=== PATIENT | male | born 1935 | race Caucasian/White ===

== ENCOUNTER 2016-03-21 04:03 | Emergency (ER) | payer MEDICARE ==
[2016-03-21 04:04] VITALS: BMI 24.5
[2016-03-21 04:16] VITALS: TEMP 97.6
--- NOTE | 2016-03-21 04:48 | EDPRACDOC ---
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 DENIES PAIN. HAS ABRASION TO APICAL SCALP. RECENT HIP FRACTURE FROM FALL. Pain Severity: Reports: None Injuries/Pain Location: Reports: head Reason for Fall: Reports: unknown Associated Symptoms (Fall): Denies: nausea/vomiting Allergies/Adverse Reactions: Allergies codeine Allergy (Verified 03/08/16 07:34) See Comments HICCUPS Penicillins Allergy (Verified 03/08/16 07:34) Unknown oxycodone Adverse Reaction (Verified 03/08/16 13:23) Confusion Home Medications: Ambulatory Orders Furosemide [Lasix] 40 mg PO DAILY 10/23/12 Allopurinol [Zyloprim] 300 mg PO DAILY 03/08/16 Enalapril Maleate [Vasotec] 2.5 mg PO DAILY 03/08/16 Folic Acid 1 mg PO DAILY 03/08/16 Leflunomide [Arava] 20 mg PO DAILY 03/08/16 Aspirin (OrangeEnteric Coated) [Ecotrin] 325 mg PO BIDWM #60 tablet 03/11/16 Levofloxacin [Levaquin] 750 mg PO DAILY #4 tablet 03/18/16 Metoprolol Tartrate [Lopressor] 12.5 mg PO BID #30 tablet 03/18/16 Oxycodone Immediate Release [Oxycodone Immediate Release (OxyIR)] 5 mg PO Q4H PRN #20 tablet 03/18/16 Prednisone [Sterapred 5 mg/6 day Uni-Pack] 21 tab PO DIR #1 pack 03/18/16 ED Past Medical History - History Reviewed Yes Nurses notes reviewed and agree except as marked - Patient Medical History Neurological History: Denies: Cerebrovascular Accident, Seizures, Dementia, Epilepsy, Guillian-Crisfield Syndrome, Parkinson's, Multiple Sclerosis, Myasthenia Gravis Cardiac History: Reports: Hypertension (in past), Hypercholesterolemia, Valvular Heart Disease, Syncope (not in the last year). Denies: Coronary Artery Disease, Atrial Fibrillation, Congestive Heart Failure, Heart Attack, Pacemaker, Cardiomyopathy Respiratory History: Reports: Pneumonia. Denies: Asthma, COPD, Chronic Bronchitis, Emphysema, Pulmonary Embolism GI/ History: Reports: Renal Disease, Kidney Stones (1978), Gastroesophageal Reflux. Denies: Renal Failure, Urinary Tract Infection, Liver Failure, Ulcer, Pancreatitis Musculoskeletal History: Reports: Arthritis (takes tylenol), Gout, Rheumatoid Arthritis. Denies: Osteoarthritis Psychological History: Denies: Depression, Anxiety, Schizophrenia, Bipolar Disorder, Substance Use Disorder Systemic History: Reports: Anemia. Denies: Cancer, Hyperthyroidism, Hypothyroidism, Lupus Surgical History: Reports: Other (Cataracts, back L4-L5, carpal tunnel, tear duct). Denies: Hernia Surgery, Tonsillectomy/Adnoidectomy - Family Medical History Reports: Hypertension (Mother), Cancer (two sisters breast cancer), Stroke ( Father had mini strokes), Cardiac Disorders (Mother). Denies: Diabetes - Social Medical History Smoking Status: Never smoker Social History: Denies: Substance Use Disorder Lives In: Senior Living Facility EDM Review of Systems - Review of Systems ROS Negative Except as Marked: Yes All systems reviewed and were negative except as marked Integumentary: Wound (APICAL SCALP INJURY AFTER FALL) - Physical Exam Constitutional: Alert Oriented to: Person, Place Last recorded Vital Signs: Last Vital Signs Temp 97.6 F 03/21/16 04:12 Pulse 89 03/21/16 04:12 Resp 20 03/21/16 04:12 BP 125/68 03/21/16 04:12 Pulse Ox 92 03/21/16 04:12 Oxygen Pulse Oxygen Saturation 92 O2 Device Room Air Oxygen Flow Rate Fraction of Inspired Oxygen ( FIO2) - HEENT Head: Abrasion (POSTERIOR APICAL SCALP), Swelling (POSTERIOR APICAL SCALP). negative: Deformity, Laceration, Tender Eye Exam: negative: Conjunctival Injection, Pale Conjunctiva Nose: negative: Congestion, Discharge Neck: negative: Limited ROM - Respiratory/Cardiovascular Respiratory: Normal - CTA. negative: Accessory Muscle Use, Diminished, Tachypnea Cardiovascular: negative: Bradycardia, Tachycardia, Irregular - GI Auscultation: Normal Palpation: Normal Tenderness: Non tender - Integumentary Skin: Warm, Dry, Other (MULTIPLE AREAS OF ECCHYMOSIS OF DIFFERENT AGES.) - Neurologic Memory Impaired: Short-term Motor Function: Normal Mood Description: Appropriate Thought: Coherent ED Injury/Fall Exam - Physical Exam Extremity Exam: pelvis stable - [place] Coma Score Best Eye Response (Tani): (4) open spontaneously Best Verbal Response (Tani): (4) confused conversation Best Motor Response ([place]): (6) obeys commands Tani Total: 14 - Re-evaluation Re-evaluation 1 Re-evaluation Time: 04:49 SON AT BEDSIDE STATES PATIENT IS AT HIS BASELINE MENTATION SINCE SURGERY. Decision Time to Discharge: 05:58 - Departure Yes I personally saw and evaluated the patient. Disposition: Home Condition: Stable Final Diagnosis: Scalp contusion Qualifiers: Encounter type: initial encounter Qualified Code(s): S00.03XA - Contusion of scalp, initial encounter Scalp abrasion Qualifiers: Encounter type: initial encounter Qualified Code(s): S00.01XA - Abrasion of scalp, initial encounter Instructions: RICE: Routine Care for Injuries, Abrasion (ED) Education/Counseling Given To: Patient, Family Member Education/Counseling Given Regarding: Diagnosis, Treatment, Prognosis, Follow Up Referrals: None,No Provider [Primary Care Provider] - As Needed
--- NOTE | 2016-03-21 05:44 | DIRPT ---
CLINICAL DATA: Status post fall, with some concern for pelvic injury. Recent right hip surgery. Initial encounter. EXAM: PELVIS - 1-2 VIEW COMPARISON: Pelvis radiograph performed 03/08/2016 FINDINGS: There is no evidence of new fracture or dislocation. The patient's right femoral hardware appears grossly intact, without evidence of loosening. Underlying fracture lines are still visualized. Overlying skin stefano are seen. Both femoral heads are seated normally within their respective acetabula. Mild degenerative change is noted at the lower lumbar spine. The visualized bowel gas pattern is grossly unremarkable in appearance. IMPRESSION: 1. No evidence of new fracture or dislocation. 2. Right femoral hardware appears grossly intact, without evidence of loosening. Electronically Signed By: Michael Bridges M.D. On: 03/21/2016 05:41
--- NOTE | 2016-03-21 05:53 | DIRPT ---
CLINICAL DATA: Initial evaluation for acute trauma. Fall with posterior head injury. EXAM: CT HEAD WITHOUT CONTRAST TECHNIQUE: Contiguous axial images were obtained from the base of the skull through the vertex without intravenous contrast. COMPARISON: None. FINDINGS: Small contusion present at the left parietal scalp. Scalp soft tissues otherwise within normal limits. No acute abnormality about the orbits. Senescent calcifications noted. Minimal polypoid opacity within the right max O sinus. Paranasal sinuses are otherwise clear. No mastoid effusion. Calvarium intact. Generalized age-related cerebral atrophy with mild chronic small vessel ischemic disease present. No acute intracranial hemorrhage. No extra-axial fluid collection. No evidence for acute large vessel territory infarct. No hydrocephalus, mass effect, or midline shift. No mass lesion. IMPRESSION: 1. No acute intracranial process. 2. Small left parietal scalp contusion. 3. Mild age-related cerebral atrophy with chronic small vessel ischemic disease. Electronically Signed By: Aquiles Desai M.D. On: 03/21/2016 05:50
[2016-03-21 06:40] VITALS: BP 111/61; PULSE 99
== END 2016-03-21 06:37 ==
LOC: ED 04:03
DX: S00.01XA Abrasion of scalp, initial encounter (principal); W19.XXXA Unspecified fall, initial encounter; Y93.9 Activity, unspecified; R51 Headache
CPT/HCPCS: 70450; 72170; 99283

== ENCOUNTER 2016-04-01 11:10 | Inpatient (IN) | payer MEDICARE, OTHER ==
[2016-04-01] MEDS ORDERED: NS 1,000 ML IV ONE ×2 (11:45→13:56)
[2016-04-01] MEDS ORDERED: ACETAMINOPHEN 650 MG SUPP PR ONE (11:56)
[2016-04-01 12:12] LABS: ABG Draw Site Right Radial; ABG Draw Tech RD; ALLEN'S TEST PASS; BEb 2.2 (+/- 2); TCO2 26.3 MMOL/L (23-27)
--- NOTE | 2016-04-01 12:16 | DIRPT ---
CLINICAL DATA: Syncope. EXAM: PORTABLE CHEST 1 VIEW COMPARISON: March 18, 2016. FINDINGS: The heart size and mediastinal contours are within normal limits. No pneumothorax or pleural effusion is noted. Minimal density is noted in the right lateral lung base most consistent with subsegmental atelectasis. The visualized skeletal structures are unremarkable. IMPRESSION: Minimal right basilar subsegmental atelectasis. No other abnormality seen in the chest. Electronically Signed By: London Epps Jr, M.D. On: 04/01/2016 12:14
[2016-04-01 12:18] LABS: MPV 8.4 fL (7.4-10.4)
--- NOTE | 2016-04-01 12:23 | EDPRACDOC ---
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, Fruit Farmer Mode of Arrival: Ambulance Home Medications: Home Medications Furosemide [Lasix] 40 mg PO DAILY 10/23/12 Allopurinol [Zyloprim] 300 mg PO DAILY 03/08/16 Enalapril Maleate [Vasotec] 2.5 mg PO DAILY 03/08/16 Folic Acid 1 mg PO DAILY 03/08/16 Leflunomide [Arava] 20 mg PO DAILY 03/08/16 Aspirin (OrangeEnteric Coated) [Ecotrin] 325 mg PO BIDWM #60 tablet 03/11/16 Levofloxacin [Levaquin] 750 mg PO DAILY #4 tablet 03/18/16 Metoprolol Tartrate [Lopressor] 12.5 mg PO BID #30 tablet 03/18/16 Oxycodone Immediate Release [Oxycodone Immediate Release (OxyIR)] 5 mg PO Q4H PRN #20 tablet 03/18/16 Prednisone [Sterapred 5 mg/6 day Uni-Pack] 21 tab PO DIR #1 pack 03/18/16 Allergies/Adverse Reactions: Allergies Allergy/AdvReac Type Severity Reaction Status Date / Time codeine Allergy See Verified 04/01/16 12:36 Comments Penicillins Allergy Unknown Verified 04/01/16 12:36 oxycodone AdvReac Confusion Verified 04/01/16 12:36 - History of Present Illness Onset: today HPI: HERE WITH FEVER. PT NOT ABLE TO CONTRIBUTE TO HX. OLD RECORDS REVIEWED. Relevant History: Reports: Chronic Illness Improves With: Reports: Nothing ED Past Medical History - History Reviewed Yes Nurses notes reviewed and agree except as marked - Patient Medical History Neurological History: Denies: Cerebrovascular Accident, Seizures, Dementia, Epilepsy, Guillian-Angier Syndrome, Parkinson's, Multiple Sclerosis, Myasthenia Gravis Cardiac History: Reports: Hypertension (in past), Hypercholesterolemia, Valvular Heart Disease, Syncope (not in the last year). Denies: Coronary Artery Disease, Atrial Fibrillation, Congestive Heart Failure, Heart Attack, Pacemaker, Cardiomyopathy Respiratory History: Reports: Pneumonia. Denies: Asthma, COPD, Chronic Bronchitis, Emphysema, Pulmonary Embolism GI/ History: Reports: Renal Disease, Kidney Stones (1978), Gastroesophageal Reflux. Denies: Renal Failure, Urinary Tract Infection, Liver Failure, Ulcer, Pancreatitis Musculoskeletal History: Reports: Arthritis (takes tylenol), Gout, Rheumatoid Arthritis. Denies: Osteoarthritis Psychological History: Denies: Depression, Anxiety, Schizophrenia, Bipolar Disorder, Substance Use Disorder Systemic History: Reports: Anemia. Denies: Cancer, Hyperthyroidism, Hypothyroidism, Lupus Surgical History: Reports: Other (Cataracts, back L4-L5, carpal tunnel, tear duct). Denies: Hernia Surgery, Tonsillectomy/Adnoidectomy - Family Medical History Reports: Hypertension (Mother), Cancer (two sisters breast cancer), Stroke ( Father had mini strokes), Cardiac Disorders (Mother). Denies: Diabetes - Social Medical History Smoking Status: Never smoker Social History: Denies: Substance Use Disorder EDM Review of Systems - Review of Systems ROS Unobtainable: Yes ROS cannot be obtained due to patient's medical condition - Physical Exam Constitutional: Alert (Awake), No apparent distress Oriented to: Unable to Test Last recorded Vital Signs: Last Vital Signs Temp 101.3 F H 04/01/16 11:29 Pulse 91 04/01/16 12:16 Resp 18 04/01/16 12:16 BP 87/49 L 04/01/16 12:16 Pulse Ox 98 04/01/16 12:16 Oxygen Pulse Oxygen Saturation 98 O2 Device Nasal Cannula Oxygen Flow Rate Fraction of Inspired Oxygen ( 2 FIO2) - HEENT Head: Normal ( normocephalic) Eye Exam: Normal (PERRL, EOMI, Sclera white) Oropharynx: Normal (Pharynx:Moist without exudate,Gums-no swelling) ENT EAC: Normal TMJ: Normal Nose: No Symptoms Reported (septum midline) Neck: Normal (FROM, trachea at midline) - Respiratory/Cardiovascular Respiratory: Normal - CTA (BBS clear to auscultation without adventitious sounds ) Cardiovascular: Normal (RRR without murmur, gallop or rub) - GI Auscultation: Normal (NABS) Palpation: Normal (Soft,No rebound or guarding, non distended) Tenderness: Non tender Ryan's Sign: Negative - Musculoskeletal Back: Normal (Non-Tender) Extremities: Normal (Normal tone, Pulses 2+ No cyanosis or edema, FROM) - Integumentary Skin: Normal, Warm, Dry Lymphatics: Normal (no adenopathy) - Neurologic Memory Impaired: Unable to Test Motor Function: Normal (Normal tone, Pulses 2+ No cyanosis or edema, FROM) Cranial Nerve: Normal (CN II-X11 intact sensation, strength 5/5) Cerebellar: Normal - Results 04/01/16 11:58 04/01/16 11:58 WBC 29.9 xk/uL (3.8-10.8) H 04/01/16 11:58 RBC 3.63 xM/uL (4.70-6.10) L 04/01/16 11:58 Hgb 11.4 g/dL (14.0-18.0) L 04/01/16 11:58 Hct 36.0 % (42-52) L 04/01/16 11:58 MCV 99 fL (80-94) H 04/01/16 11:58 MCH 31.4 pg (27-32) 04/01/16 11:58 MCHC 31.6 g/dl (33-36) L 04/01/16 11:58 RDW 18.3 % (11.5-14.5) H 04/01/16 11:58 Plt Count 187 xk/uL (130-400) 04/01/16 11:58 MPV 8.4 fL (7.4-10.4) 04/01/16 11:58 Puncture Site Right radial 04/01/16 12:08 pH 7.480 pH UNITS (7.35-7.45) H 04/01/16 12:08 pCO2 34.0 mmHg (35-45) L 04/01/16 12:08 pO2 78.0 mmHg (80-100) L 04/01/16 12:08 HCO3 25.3 MMOL/L (22-26) 04/01/16 12:08 Total CO2 26.3 MMOL/L (23-27) 04/01/16 12:08 Base Excess 2.2 (+/- 2) H 04/01/16 12:08 FiO2 % 2l nc 04/01/16 12:[address] 04/01/16 12:08 Lab Results 04/01/16 04/01/16 12:08 11:58 WBC 29.9 H RBC 3.63 L Hgb 11.4 L Hct 36.0 L MCV 99 H MCH 31.4 MCHC 31.6 L RDW 18.3 H Plt Count 187 MPV 8.4 Puncture Site Right radial pH 7.480 H pCO2 34.0 L pO2 78.0 L HCO3 25.3 Total CO2 26.3 Base Excess 2.2 H FiO2 % 2l nc Specimen Drawn By Rd - EKG EKG #1 [place]: Normal Rhythm: ST Block: None Hypertrophy: None ST: Normal ED Critical Care Note - Critical Care Note Total Time (mins): 35 - Departure Yes I personally saw and evaluated the patient. Disposition: Admit IP To This Hospital Condition: Good Final Diagnosis: FEBRILE ILLNESS, SEVERE SEPSIS Referrals: Charles Sprague MD [Primary Care Provider] - One Week Decision to Admit Time: 12:41 (SERENA) Decision to admit date: 04/01/16 Decision to admit: from ED
[2016-04-01 12:27] LABS: PARTIAL THROMB. TIME 25.1 SEC (22-35); PT-INR 1.1
[2016-04-01 12:29] LABS: BLOOD UREA NITROGEN 31 MG/DL (9-20); CALC CORRECTED 10.5 MG/DL (8.4-10.2); CALCIUM 9.4 MG/DL (8.4-10.2); CALCULATED OSMOLALITY 282 MOs/Kg (270-290); CHLORIDE 101 mEq/L (98-107); GLUCOSE 133 MG/DL (70-99); SODIUM LEVEL 142 mEq/L (137-146); TOTAL PROTEIN 5.6 G/DL (6.3-8.2)
[2016-04-01 12:31] LABS: LEUKOCYTES/URINE NEG (NEGATIVE); NITRITE/URINE NEG (NEGATIVE); RBC/URINE 0-2 (0-2); URINE OCCULT BLOOD NEG (NEG/TRACE); WBC/URINE 0-2 (0-2)
[2016-04-01] MEDS ORDERED: CEFEPIME HYDROCHLORIDE 2 GM in D5W 100 ML IV ONE (12:40)
[2016-04-01] MEDS ORDERED: PIPERACILLIN AND TAZOBACTAM 3.375 GM in D5W 100 ML IV ONE (12:40)
[2016-04-01 13:24] LABS: SEG NEUTROPHIL 79 % (45-76)
[2016-04-01] MEDS ORDERED: TEMAZEPAM 15 MG CAP PO PRN (13:56)
[2016-04-01] MEDS ORDERED: ACETAMINOPHEN 650 MG SUPP PR PRN (13:56)
[2016-04-01] MEDS ORDERED: ONDANSETRON HCL 4 MG/2 ML VIAL IV PRN (13:56)
[2016-04-01] MEDS ORDERED: BENZONATATE 100 MG PERLES PO PRN (13:56)
[2016-04-01] MEDS ORDERED: DOCUSATE-SENNA CONCENTRATE TAB PO PRN (13:56)
[2016-04-01] MEDS ORDERED: METOCLOPRAMIDE 10 MG/2 ML VIAL IV PRN (13:56)
[2016-04-01] MEDS ORDERED: ACETAMINOPHEN 325 MG/TAB TABLET PO PRN (13:56)
[2016-04-01] MEDS ORDERED: SIMETHICONE 80 MG TAB PO PRN (13:56)
[2016-04-01] MEDS ORDERED: GLUCAGON 1 MG VIAL SQ PRN (13:56)
[2016-04-01] MEDS ORDERED: DEXTROSE 25 GM/50 ML PFS IV PRN (13:56)
[2016-04-01] MEDS ORDERED: GLUCOSE (ORAL GEL) 15 GM TUBE PO PRN (13:56)
[2016-04-01] MEDS ORDERED: NS 1,000 ML IV SCH (14:00)
[2016-04-01] MEDS ORDERED: Pharmacy Order Set Alert SCH (14:00)
[2016-04-01] MEDS ORDERED: Levofloxacin 750 mg/150 ml D5W 750 MG/150 ML RTU IV SCH (16:00)
[2016-04-01] MEDS ORDERED: NS 500 ML IV ONE (16:02)
[2016-04-01] MEDS: Norepinephrine in D5W infusion 8,000 MCG/250 ML BAG IV SCH (16:28)
--- NOTE | 2016-04-01 16:36 | HISTPHYS ---
- Chief Complaint syncope, altered mental status - History of Present Illness Samantha Jewell is an 80 year old gentleman who underwent recent hip surgery and was getting rehabilitation at [facility]. He had a syncopal episode today, and subsequently was noted to be tachypneic and tachycardic. He is slightly confused, but his caretakers stated that he has some baseline dementia. In the ED he was noted to have chest congestion, an abnormal CXR with probable early pneumonia, fever, tachypnea, tachycardia, and leukocytosis with a bandemia, all consistent with sepsis. His lactic acid level is 4.9. He is critically ill and will be admitted to the ICU for further care and evaluation. We will initiate rapid hydration and after obtaining appropriate cultures, begin IV antibiotics. - Medical History Cardiac History: Reports: Hypertension (On BP med for issue w/ kidneys.), Syncope (not in the last year) Respiratory History: Reports: Pneumonia (02/2016), Pulmonary Embolism (Post op 02/2016) GI/ History: Reports: Renal Disease, Kidney Stones (1978) Musculoskeletal History: Reports: Arthritis (takes tylenol), Gout Systemic History: Reports: Anemia - Surgical History Reports: Other (Cataracts, back L4-L5, carpal tunnel, tear duct). Denies: Hernia Surgery, Tonsillectomy/Adnoidectomy - Medictions/Allergies Allergies codeine Allergy (Unknown, Verified 04/01/16 15:31) See Comments Hallucinations Penicillins Allergy (Unknown, Verified 04/01/16 15:31) See Comments Family unaware of allergy to PCN. oxycodone Adverse Reaction (Unknown, Verified 04/01/16 15:31) Confusion Hallucinations Home Medications Furosemide [Lasix] 40 mg PO BID 10/23/12 Allopurinol [Zyloprim] 300 mg PO 1600 03/08/16 Enalapril Maleate [Vasotec] 2.5 mg PO DAILY 03/08/16 Folic Acid 1 mg PO 0900 03/08/16 Leflunomide [Arava] 20 mg PO 1600 03/08/16 Aspirin (OrangeEnteric Coated) [Ecotrin] 325 mg PO BIDWM #60 tablet 03/11/16 Metoprolol Tartrate [Lopressor] 12.5 mg PO BID #30 tablet 03/18/16 Oxycodone Immediate Release [Oxycodone Immediate Release (OxyIR)] 5 mg PO Q4H PRN #20 tablet 03/18/16 Acetaminophen [Tylenol] 650 mg PO Q6H PRN 04/01/16 Calcium Carbonate/Vitamin D3 [Calcium 500 + Vit D 200 Tablet] 1 each PO BID Prednisone [Deltasone, Orasone] 5 mg PO 0900 04/01/16 Sennosides [Senokot] 2 tab PO HS 04/01/16 - Family History Reports: Hypertension (Mother), Cancer (two sisters breast cancer), Stroke ( Father had mini strokes), Cardiac Disorders (Mother) - Social History Smoking Status: Former smoker - Review of Systems Constitutional: Chills, Fever, Fatigue, Weakness Eyes: No Symptoms Reported Ears: No Symptoms Reported Nose: Congestion Mouth: No Symptoms Reported, Poor Dentition Throat/Neck: Hoarseness, Snoring Respiratory: Cough, Shortness of Breath, Wheezing Cardiovascular: Chest Pain, Syncope Gastrointestinal: Nausea, Vomiting, Appetite Changes Genitourinary: No Symptoms Reported Neurological: Dizziness, Weakness, Memory Changes Musculoskeletal:: Osteoarthritis, Weakness Integumentary: No Symptoms Reported Allergic/Immunologic: No Symptoms Reported Hematologic: No Symptoms Reported Endocrine: No Symptoms Reported Psychiatric: No Symptoms Reported - Physical Exam Vital Signs: Initial Vitals Temperature 101.3 F H 04/01/16 11:29 Pulse Rate 114 04/01/16 11:29 Blood Pressure 91/51 L 04/01/16 11:29 Constitutional: Distress, Decreased Consciousness Oriented to: Unable to Test - HEENT Head: Normal Eye: Normal (PERRL: EOMI), Pale Conjunctiva Oropharynx: Membranes Dry. negative: Exudate, Red, Tonsillar Hypertrophy Tympanic Membrane: Dull ENT EAC: Normal Nose: No Symptoms Reported. negative: Bleeding, Congestion, Discharge Respiratory: Accessory Muscle Use, Rales, Retractions, Rhonchi, Tachypnea, Wheezes Cardiovascular: Tachycardia, Systolic murmur, Gallop/S3 - GI Auscultation: Normal Palpation: Normal (soft, nondistended). negative: Fluid Wave, Mass Tenderness: Non tender Ryan's Sign: Negative Rectal Exam: Deferred - Musculoskeletal Back: Normal, No Palpable Step-off Extremities: Pedal Pulse (normal), Radial Pulse (normal). negative: Clubbing, Cyanosis, Edema Spine: non-tender, normal alignment, normal inspection - Integumentary Skin: Hot, Dry. negative: Rash Lymphatics: Normal - Neurologic Memory Impaired: Unable to Test Motor Function: Unable to Test Cranial Nerve: Unable to Test Cerebellar: Unable to Test Mood Description: Other (minimally responsive) Thought: negative: Coherent Perception: Other (unable to test) - Focused CV Perfusion Exam Date exam occurred: 04/01/16 Time of Exam: 15:00 Vital Signs: Last Vital Signs Temp 100.4 F 04/01/16 15:30 Pulse 107 04/01/16 15:30 Resp 18 04/01/16 15:00 BP 92/50 L 04/01/16 15:30 Pulse Ox 98 04/01/16 13:05 Respiratory: Respiratory distress, Accessory muscle use, Rales, Rhonchi Cardiovascular/Chest: Tachycardia, Gallop/S3 Peripheral pulses: Absent: Posterior tibialis (R), Posterior tibialis (L), Diminished: Radial (R), Radial (L), Dorsalis pedis (R), Dorsalis pedis (L) Skin Color: Dusky, Ashen Skin Turgor: >3 Seconds, Tight - Lab Results Laboratory Tests 04/01/16 04/01/16 04/01/16 11:30 11:58 11:58 WBC Hgb Hct Plt Count Seg Neuts % (Manual) Band Neutrophils % Lymphocytes % (Manual) Monocytes % (Manual) Myelocytes % Absolute Neutrophils PT INR APTT pH pCO2 pO2 HCO3 Total CO2 Base Excess FiO2 % Sodium 142 Potassium 3.3 L Chloride 101 Carbon Dioxide 27 Anion Gap 17 H BUN 31 H Creatinine 1.80 H Estimated GFR (MDRD) 36 L Glucose 133 H POC Capillary Glucose Calculated Osmolality 282 Lactic Acid 4.9 H* Calcium 9.4 Corrected Calcium 10.5 H Total Bilirubin 1.2 AST 31 ALT 31 Alkaline Phosphatase 174 H Troponin I 0.20 Total Protein 5.6 L Albumin 2.9 L Urine Color Yellow Urine Clarity Clear Urine pH 6.0 Ur Specific [place] 1.010 Urine Protein Neg Urine Glucose (UA) Neg Urine Ketones Neg Urine Nitrite Neg Urine RBC 0-2 Urine WBC 0-2 Hyaline Casts 10-20 H Urine Mucus Occ 04/01/16 04/01/16 04/01/16 11:58 11:58 12:08 WBC 29.9 H Hgb 11.4 L Hct 36.0 L Plt Count 187 Seg Neuts % (Manual) 79 H Band Neutrophils % 12 H Lymphocytes % (Manual) 3 L Monocytes % (Manual) 3 Myelocytes % 3 H Absolute Neutrophils 27.21 H PT 11.4 H INR 1.1 APTT 25.1 pH 7.480 H pCO2 34.0 L pO2 78.0 L HCO3 25.3 Total CO2 26.3 Base Excess 2.2 H FiO2 % 2l nc Sodium Potassium Chloride Carbon Dioxide Anion Gap BUN Creatinine Estimated GFR (MDRD) Glucose POC Capillary Glucose Calculated Osmolality Lactic Acid Calcium Corrected Calcium Total Bilirubin AST ALT Alkaline Phosphatase Troponin I Total Protein Albumin Urine Color Urine Clarity Urine pH Ur Specific [place] Urine Protein Urine Glucose (UA) Urine Ketones Urine Nitrite Urine RBC Urine WBC Hyaline Casts Urine Mucus 04/01/16 04/01/16 16:20 16:43 WBC Hgb Hct Plt Count Seg Neuts % (Manual) Band Neutrophils % Lymphocytes % (Manual) Monocytes % (Manual) Myelocytes % Absolute Neutrophils PT INR APTT pH pCO2 pO2 HCO3 Total CO2 Base Excess FiO2 % Sodium Potassium Chloride Carbon Dioxide Anion Gap BUN Creatinine Estimated GFR (MDRD) Glucose POC Capillary Glucose 92 Calculated Osmolality Lactic Acid 3.4 H Calcium Corrected Calcium Total Bilirubin AST ALT Alkaline Phosphatase Troponin I Total Protein Albumin Urine Color Urine Clarity Urine pH Ur Specific [place] Urine Protein Urine Glucose (UA) Urine Ketones Urine Nitrite Urine RBC Urine WBC Hyaline Casts Urine Mucus - Diagnostic Findings CXR: IMPRESSION: Minimal right basilar subsegmental atelectasis. No other abnormality seen in the chest. Electronically Signed By: London Epps Jr, M.D. On: 04/01/2016 12:14 By my personal review, this is also suggestive of possible RLL pneumonia. Ruben Umaña MD - Assessment (1) Sepsis A41.9 - SEPSIS, UNSPECIFIED ORGANISM Acute Qualifiers: Sepsis type: sepsis due to unspecified organism Qualified Code(s): A41.9 - Sepsis, unspecified organism Patient presented with fever, tachypnea, tachycardia, and pneumonia and well as leukocytosis and lactic acidosis which are consistent with sepsis. His lactate level is above 4 consistent with severe sepsis. Admit to ICU and initiate severe sepsis protocol. Obtain appropriate cultures and begin aggressive fluid resuscitation and broad-spectrum antibiotics, await cultures results. (2) Acute respiratory failure with hypoxia J96.01 - ACUTE RESPIRATORY FAILURE WITH HYPOXIA Acute Present on Admission: Yes Patient was hypoxic, but stable once placed on 2L of O2 per NC. Will resume pulmonary toilet and DuoNeb treatments. (3) Pneumonia J18.9 - PNEUMONIA, UNSPECIFIED ORGANISM Acute Present on Admission: Yes Qualifiers: Pneumonia type: due to unspecified organism Laterality: bilateral Lung location: unspecified part of lung Qualified Code(s): J18.9 - Pneumonia, unspecified organism Obtain blood and urine culture, sputum culture if possible, begin antibiotics with IV Rocephin, Levaquin and vanc. Continue broad-spectrum antibiotics and aggressive pulmonary toilet. (4) Acute kidney injury N17.9 - ACUTE KIDNEY FAILURE, UNSPECIFIED Acute Present on Admission: Yes Hydrate aggressively and follow renal function (5) Anemia D64.9 - ANEMIA, UNSPECIFIED Chronic Present on Admission: Yes Qualifiers: Anemia type: other cause Other causes of anemia: chronic disease, other Qualified Code(s): D63.8 - Anemia in other chronic diseases classified elsewhere Monitor counts -overall stable. Probably related to Rheumatoid arthritis. (6) Rheumatoid arthritis M06.9 - RHEUMATOID ARTHRITIS, UNSPECIFIED Chronic Present on Admission: Yes Qualifiers: Rheumatoid arthritis location: multiple sites Rheumatoid factor presence: with rheumatoid factor Qualified Code(s): M05.79 - Rheumatoid arthritis with rheumatoid factor of multiple sites without organ or systems involvement Given hypotension patient will receive stress dose steroids. (7) Hypokalemia E87.6 - HYPOKALEMIA Acute Present on Admission: Yes Replace and monitor (8) Fracture, intertrochanteric, right femur S72.141A - DISPLACED INTERTROCHANTERIC FRACTURE OF RIGHT FEMUR, INIT Acute Qualifiers: Encounter type: subsequent encounter Fracture type: closed Status post surgical repair. Continue postop care. Hold PT/OT for now. will resume in 2-3 days, consult ortho also for follow-up. (9) Pulmonary embolus I26.99 - OTHER PULMONARY EMBOLISM WITHOUT ACUTE COR PULMONALE Acute Present on Admission: Yes Qualifiers: Pulmonary embolism type: other Chronicity: unspecified Acute cor pulmonale presence: without acute cor pulmonale Qualified Code(s): I26.99 - Other pulmonary embolism without acute cor pulmonale Diagnosed in late February 2016 by [facility] on V/Q scan. Given thrombocytopenia and repeated falls at home he is a very poor anticoagulation candidate. Discussed with Pulmonary and will hold off on full anticoagulation for now. Discussed with who understands risk.
[2016-04-01] MEDS ORDERED: Vaccine Screening Complete SCH (17:00)
[2016-04-01] MEDS: REGULAR INSULIN 100 UNITS/ML - 3 ML VIAL SQ SCH ×2 (17:15→22:21)
[2016-04-01] MEDS: NS 1,000 ML IV SCH (17:53)
[2016-04-01] MEDS: ENOXAPARIN 40 MG/0.4 ML PFS SQ SCH (18:04)
[2016-04-01] MEDS: CEFTRIAXONE 1 GM in D5W 100 ML IV SCH (18:37)
[2016-04-01] MEDS: CHLORHEXIDINE (HIBICLENS) 4 OZ BOTTLE TOP SCH (22:10)
[2016-04-02] MEDS: NS 1,000 ML IV SCH ×4 (02:15→20:41)
[2016-04-02] MEDS: Norepinephrine in D5W infusion 8,000 MCG/250 ML BAG IV SCH ×2 (06:47→17:07)
[2016-04-02] MEDS: REGULAR INSULIN 100 UNITS/ML - 3 ML VIAL SQ SCH ×4 (06:49→21:47)
[2016-04-02 06:53] LABS: MPV 9.5 fL (7.4-10.4)
[2016-04-02 06:55] LABS: PT-INR 1.3
[2016-04-02 07:03] LABS: BLOOD UREA NITROGEN 31 MG/DL (9-20); CALCIUM 7.9 MG/DL (8.4-10.2); CALCULATED OSMOLALITY 276 MOs/Kg (270-290); CHLORIDE 107 mEq/L (98-107); GLUCOSE 112 MG/DL (70-99); SODIUM LEVEL 139 mEq/L (137-146)
[2016-04-02 07:33] LABS: SEG NEUTROPHIL 63 % (45-76)
[2016-04-02] MEDS: KCl 10 mEq/100 ml Premix (Run) 10 MEQ/100 ML RTU IV SCH ×6 (11:00→14:17)
[2016-04-02] MEDS: HYDROCORTISONE 100 MG/2 ML VIAL IV SCH ×2 (11:01→17:58)
--- NOTE | 2016-04-02 11:32 | DIRPT ---
CLINICAL DATA: Syncope. EXAM: PORTABLE CHEST 1 VIEW COMPARISON: 04/01/2016 FINDINGS: Mild decrease in lung volumes since previous study. Mild atelectasis or infiltrate again seen in the lateral right lung base, without significant change. No evidence of pneumothorax or pleural effusion. Heart size is within normal limits. IMPRESSION: Mild right basilar infiltrate or atelectasis, without significant change. Electronically Signed By: Dusty Murcia M.D. On: 04/02/2016 11:30
[2016-04-02] MEDS ORDERED: Metronidazole 500 mg/100 ml 500 MG/100 ML RTU IV ONE (14:00)
--- NOTE | 2016-04-02 14:16 | GENMEDPROG ---
Chief Complaint: sepsis, pneumonia, Clostridium difficile colitis, dehydration, acute kidney injury, anemia, hypokalemia Notes Reviewed: Yes Events from last night noted and discussed with Clinical Staff Currently: Reports: NAIK, SOB, Diarrhea, Abdominal Pain - Physical Examination Vital Signs and I&O: Last Vital Signs Temp 99.9 F 04/02/16 13:00 Pulse 105 04/02/16 13:00 Resp 18 04/02/16 13:00 BP 87/49 L 04/02/16 13:00 Pulse Ox 95 04/02/16 13:00 Oxygen Pulse Oxygen Saturation 95 O2 Device Nasal Cannula Oxygen Flow Rate 1 Fraction of Inspired Oxygen ( FIO2) Intake & Output 03/30/16 03/31/16 04/01/16 04/02/16 23:59 23:59 23:59 23:59 Intake Total 2644 2058 Output Total 300 225 Balance 2344 1833 Patient's weight 72.121 kg General: Moderate distress, Weakness, Fatigue HEENT: PERRLA, EOMI, Anicteric Sclera, Mucous membr. moist/pink Neck: Full range of motion, Normal Trachea alignment, Normal inspection, No Masses palpable, No Thyromegaly palpable Lymphatics: Normal Respiratory: Accessory Muscle Use, Rales, Retractions, Rhonchi, Tachypnea, Wheezes Cardiovascular: Regular rate and rhythm, Normal S1, Normal S2, Irregular. negative: LE Edema GI: Normal bowel sounds, Soft, No masses, Tenderness (mild diffuse), Guarding. negative: Rebound Extremities/Musculoskeletal: Normal pulses Lab/DI/Studies Reviewed: Laboratory Tests 04/02/16 04/02/16 04/02/16 05:52 05:52 05:52 WBC 33.2 H* Hgb 11.2 L Hct 35.4 L Plt Count 191 Seg Neuts % (Manual) 63 Band Neutrophils % 31 H Lymphocytes % (Manual) 2 L PT INR Sodium 139 Potassium 3.3 L Chloride 107 Carbon Dioxide 22 Anion Gap 13 BUN 31 H Creatinine 1.50 H Estimated GFR (MDRD) 45 L Glucose 112 H POC Capillary Glucose Calculated Osmolality 276 Lactic Acid 2.4 H Calcium 7.9 L 04/02/16 04/02/16 05:52 11:50 WBC Hgb Hct Plt Count Seg Neuts % (Manual) Band Neutrophils % Lymphocytes % (Manual) PT 13.0 H INR 1.3 Sodium Potassium Chloride Carbon Dioxide Anion Gap BUN Creatinine Estimated GFR (MDRD) Glucose POC Capillary Glucose 81 Calculated Osmolality Lactic Acid Calcium Microbiology 04/01/16 23:41 Stool Stool Consistency (JESSE) - Final 04/01/16 23:41 Stool Clostridium difficile 027 (PCR) - Final * POSITIVE * This test may remain positive for several weeks even after the resolution of symptoms and completion of treatment. Therefore, repeat testing should NOT be requested within 7 days of the initial positive specimen, and then should be performed only in the setting of new onset diarrheal illness. Repeat assays should NOT be done to test for resolution of C. difficile infection. ([employer] C. difficile/Epi by PCR: Performance characteristics have not been established for patients <2 years of age - per cattle rancher limitations.) PRESUMPTIVE POSITIVE (For in vitro diagnostic use only. [id number] results are NOT intended to guide treatment of C. difficile infections. (Infection Control Hosp Epidemiol 2010;31:431-455) ) - Assessment (1) Sepsis Acute A41.9 - SEPSIS, UNSPECIFIED ORGANISM Qualifiers: Sepsis type: sepsis due to unspecified organism Qualified Code(s): A41.9 - Sepsis, unspecified organism Comment/Plan: Patient presented with fever, tachypnea, tachycardia, and pneumonia and well as leukocytosis and lactic acidosis which are consistent with sepsis. His lactate level is above 4 consistent with severe sepsis. Admit to ICU and initiate severe sepsis protocol. Obtain appropriate cultures and begin aggressive fluid resuscitation and broad-spectrum antibiotics, await cultures results. (2) Acute respiratory failure with hypoxia Acute J96.01 - ACUTE RESPIRATORY FAILURE WITH HYPOXIA Comment/Plan: Patient was hypoxic, but stable once placed on 2L of O2 per NC. Will resume pulmonary toilet and DuoNeb treatments. (3) Pneumonia Acute J18.9 - PNEUMONIA, UNSPECIFIED ORGANISM Qualifiers: Pneumonia type: due to unspecified organism Laterality: bilateral Lung location: unspecified part of lung Qualified Code(s): J18.9 - Pneumonia, unspecified organism Comment/Plan: Obtain blood and urine culture, sputum culture if possible, begin antibiotics with IV Rocephin, Levaquin and vanc. Continue broad-spectrum antibiotics and aggressive pulmonary toilet. (4) Clostridium difficile colitis Acute A04.7 - ENTEROCOLITIS DUE TO CLOSTRIDIUM DIFFICILE Comment/Plan: Stool test + for C. diff. Patient remains nauseated and unable to swallow due to altered sensorium. Will start medication IV. (5) Anemia Chronic D64.9 - ANEMIA, UNSPECIFIED Qualifiers: Anemia type: other cause Other causes of anemia: chronic disease, other Qualified Code(s): D63.8 - Anemia in other chronic diseases classified elsewhere Comment/Plan: Monitor counts -overall stable. Probably related to Rheumatoid arthritis. (6) Acute kidney injury Acute N17.9 - ACUTE KIDNEY FAILURE, UNSPECIFIED Comment/Plan: Hydrate aggressively and follow renal function (7) Rheumatoid arthritis Chronic M06.9 - RHEUMATOID ARTHRITIS, UNSPECIFIED Qualifiers: Rheumatoid arthritis location: multiple sites Rheumatoid factor presence: with rheumatoid factor Qualified Code(s): M05.79 - Rheumatoid arthritis with rheumatoid factor of multiple sites without organ or systems involvement Comment/Plan: Given hypotension patient will receive stress dose steroids. (8) Hypokalemia Acute E87.6 - HYPOKALEMIA Comment/Plan: Replace and monitor (9) Fracture, intertrochanteric, right femur Acute S72.141A - DISPLACED INTERTROCHANTERIC FRACTURE OF RIGHT FEMUR, INIT Qualifiers: Encounter type: subsequent encounter Fracture type: closed Comment/Plan: Status post surgical repair. Continue postop care. Remove stefano from incision. Hold PT/OT for now. Will resume in 2-3 days, consult ortho also for follow-up. (10) Pulmonary embolus Acute I26.99 - OTHER PULMONARY EMBOLISM WITHOUT ACUTE COR PULMONALE Qualifiers: Pulmonary embolism type: other Chronicity: unspecified Acute cor pulmonale presence: without acute cor pulmonale Qualified Code(s): I26.99 - Other pulmonary embolism without acute cor pulmonale Comment/Plan: Diagnosed in late February 2016 by [facility] on V/ Q scan. Given thrombocytopenia and repeated falls at home he is a very poor anticoagulation candidate. Discussed with who understands risk. Case Care Discussed with: Patient, Family, Nursing Staff Education/Counseling Given To: Patient Education/Counseling Given Regarding: Diagnosis, Treatment, Prognosis Total Time: 45 min Code: 291
[2016-04-02] MEDS: Fluconazole 200 mg in NS 200 MG/100 ML ML IV SCH (17:12)
[2016-04-02] MEDS: ENOXAPARIN 40 MG/0.4 ML PFS SQ SCH (17:58)
[2016-04-02] MEDS: CEFTRIAXONE 1 GM in D5W 100 ML IV SCH (17:58)
[2016-04-02] MEDS: Metronidazole 500 mg/100 ml 500 MG/100 ML RTU IV SCH (20:41)
[2016-04-02] MEDS: CHLORHEXIDINE (HIBICLENS) 4 OZ BOTTLE TOP SCH (23:02)
[2016-04-03] MEDS: HYDROCORTISONE 100 MG/2 ML VIAL IV SCH ×3 (01:17→17:48)
[2016-04-03] MEDS: Metronidazole 500 mg/100 ml 500 MG/100 ML RTU IV SCH ×2 (04:12→11:01)
[2016-04-03] MEDS: Norepinephrine in D5W infusion 8,000 MCG/250 ML BAG IV SCH ×3 (04:54→16:00)
[2016-04-03] MEDS: NS 1,000 ML IV SCH ×4 (04:54→21:08)
[2016-04-03 05:35] LABS: MPV 9.6 fL (7.4-10.4)
[2016-04-03 05:40] LABS: PT-INR 1.2
[2016-04-03] MEDS: REGULAR INSULIN 100 UNITS/ML - 3 ML VIAL SQ SCH ×4 (07:24→21:15)
--- NOTE | 2016-04-03 07:56 | DIRPT ---
CLINICAL DATA: Syncope. Dyspnea. EXAM: PORTABLE CHEST 1 VIEW COMPARISON: 04/02/2016 FINDINGS: Mild opacity in the lateral right lung base shows no significant change. Low lung volumes are noted, however left lung is clear. Heart size is stable. No evidence of pneumothorax. IMPRESSION: Mild right basilar infiltrate or atelectasis, without significant change. Electronically Signed By: Dusty Murcia M.D. On: 04/03/2016 07:53
[2016-04-03 09:32] LABS: SEG NEUTROPHIL 71 % (45-76)
[2016-04-03 09:50] LABS: BLOOD UREA NITROGEN 35 MG/DL (9-20); CALCIUM 7.5 MG/DL (8.4-10.2); CALCULATED OSMOLALITY 275 MOs/Kg (270-290); CHLORIDE 109 mEq/L (98-107); GLUCOSE 111 MG/DL (70-99); SODIUM LEVEL 138 mEq/L (137-146)
[2016-04-03 10:34] VITALS: TEMP 97.5
--- NOTE | 2016-04-03 11:40 | GENMEDPROG ---
Chief Complaint: SEPSIS, PNEUMONIA, C.DIFF, TME, ELZBIETA, LEUKOCYTOSIS Subjective Note: PATIENT MORE ALERT & RESPONSIVE, SWALLOWING BETTER TODAY. STILL HYPOTENSIVE. REMAINS ON LEVOPHED. Currently: Reports: NAIK, SOB, Diarrhea, Abdominal Pain - Physical Examination Vital Signs and I&O: Last Vital Signs Temp 98.1 F 04/03/16 10:00 Pulse 109 04/03/16 11:00 Resp 18 04/03/16 11:00 BP 91/66 L 04/03/16 11:00 Pulse Ox 93 04/03/16 10:00 Oxygen Pulse Oxygen Saturation 93 O2 Device Room Air Oxygen Flow Rate 1 Fraction of Inspired Oxygen ( FIO2) Intake & Output 03/31/16 04/01/16 04/02/16 04/03/16 23:59 23:59 23:59 23:59 Intake Total 2644 5315 1518 Output Total 300 525 150 Balance 2344 7557 1368 Patient's weight 72.121 kg 74.389 kg IV NOREPINEPHRINE General: Alert, Cooperative, Mild distress, Weakness, Fatigue HEENT: PERRLA, EOMI, Anicteric Sclera, Mucous membr. moist/pink, Pallor Neck: Full range of motion, Normal Trachea alignment, Normal inspection, No Masses palpable, No Thyromegaly palpable Lymphatics: Normal Respiratory: Accessory Muscle Use, Rales (RLL), Tachypnea Cardiovascular: Regular rate and rhythm, Normal S1, Normal S2, Irregular. negative: LE Edema GI: Soft, No masses, Tenderness (mild diffuse). negative: Normal bowel sounds ( INCREASED), Rebound Extremities/Musculoskeletal: Normal pulses, Edema (L ANKLE), DJD Skin: Warm,Dry and Intact Neurological: Normal speech, Strength at 5/5 X4 ext, Normal tone, Cranial nerves 3-12 NL Psych/Mental Status: Appropriate, Normal Affect, Cooperative Lab/DI/Studies Reviewed: Laboratory Tests 04/03/16 04/03/16 04/03/16 04:46 04:46 06:13 WBC 31.2 H* Hgb 10.8 L Hct 34.5 L Plt Count 152 Seg Neuts % (Manual) 71 Band Neutrophils % 18 H Lymphocytes % (Manual) 5 L Monocytes % (Manual) 5 PT 12.7 H INR 1.2 Sodium Potassium Chloride Carbon Dioxide Anion Gap BUN Creatinine Estimated GFR (MDRD) Glucose POC Capillary Glucose 135 H Calculated Osmolality Calcium 04/03/16 09:22 WBC Hgb Hct Plt Count Seg Neuts % (Manual) Band Neutrophils % Lymphocytes % (Manual) Monocytes % (Manual) PT INR Sodium 138 Potassium 3.7 Chloride 109 H Carbon Dioxide 20 L Anion Gap 13 BUN 35 H Creatinine 1.50 H Estimated GFR (MDRD) 45 L Glucose 111 H POC Capillary Glucose Calculated Osmolality 275 Calcium 7.5 L CXR: FINDINGS: Mild opacity in the lateral right lung base shows no significant change. Low lung volumes are noted, however left lung is clear. Heart size is stable. No evidence of pneumothorax. IMPRESSION: Mild right basilar infiltrate or atelectasis, without significant change. Electronically Signed By: Dusty Murcia M.D. On: 04/03/2016 07:53 - Assessment (1) Sepsis Acute A41.9 - SEPSIS, UNSPECIFIED ORGANISM Qualifiers: Sepsis type: sepsis due to unspecified organism Qualified Code(s): A41.9 - Sepsis, unspecified organism Comment/Plan: Patient presented with fever, tachypnea, tachycardia, and pneumonia and well as leukocytosis and lactic acidosis which are consistent with sepsis. His lactate level is above 4 consistent with severe sepsis. Continue severe sepsis protocol. All cultures negative so far, except C. diff is positive. Continue IV fluid resuscitation and broad-spectrum antibiotics. (2) Acute respiratory failure with hypoxia Acute J96.01 - ACUTE RESPIRATORY FAILURE WITH HYPOXIA Comment/Plan: Patient was hypoxic, but stable once placed on 2L of O2 per NC. Will resume pulmonary toilet and DuoNeb treatments. (3) Pneumonia Acute J18.9 - PNEUMONIA, UNSPECIFIED ORGANISM Qualifiers: Pneumonia type: due to unspecified organism Laterality: right Lung location: lower lobe of lung Qualified Code(s): J18.1 - Lobar pneumonia, unspecified organism Comment/Plan: Obtain blood and urine culture, sputum culture if possible, begin antibiotics with IV Rocephin, Levaquin and vanc. Continue broad-spectrum antibiotics and aggressive pulmonary toilet. Possibly aspiration pneumonia. Will stop the IV vanc. (4) Clostridium difficile colitis Acute A04.7 - ENTEROCOLITIS DUE TO CLOSTRIDIUM DIFFICILE Comment/Plan: Stool test + for C. diff. Patient initially nauseated and unable to swallow due to altered sensorium. Started medication IV, but should be able to take it PO now. Will change to PO metronidazole. (5) Anemia Chronic D64.9 - ANEMIA, UNSPECIFIED Qualifiers: Anemia type: other cause Other causes of anemia: chronic disease, other Qualified Code(s): D63.8 - Anemia in other chronic diseases classified elsewhere Comment/Plan: Hg=10.8 Monitor counts -overall stable. Probably related to Rheumatoid arthritis. (6) Leukocytosis Acute D72.829 - ELEVATED WHITE BLOOD CELL COUNT, UNSPECIFIED Qualifiers: Leukocytosis type: bandemia Qualified Code(s): D72.825 - Bandemia Comment/Plan: This may be related to sepsis and infection; will hold Arava as precaution. Give stress-dose steroids. Wean after 6 doses. (7) Acute kidney injury Acute N17.9 - ACUTE KIDNEY FAILURE, UNSPECIFIED Comment/Plan: Hydrate aggressively and follow renal function (8) Rheumatoid arthritis Chronic M06.9 - RHEUMATOID ARTHRITIS, UNSPECIFIED Qualifiers: Rheumatoid arthritis location: multiple sites Rheumatoid factor presence: with rheumatoid factor Qualified Code(s): M05.79 - Rheumatoid arthritis with rheumatoid factor of multiple sites without organ or systems involvement Comment/Plan: Given hypotension patient will receive stress dose steroids. (9) Hypokalemia Acute E87.6 - HYPOKALEMIA Comment/Plan: Replace and monitor (10) Fracture, intertrochanteric, right femur Acute S72.141A - DISPLACED INTERTROCHANTERIC FRACTURE OF RIGHT FEMUR, INIT Qualifiers: Encounter type: subsequent encounter Fracture type: closed Comment/Plan: Status post surgical repair. Continue postop care. Remove stefano from incision. Hold PT/OT for now. Will resume in 2-3 days, consult ortho also for follow-up. (11) Pulmonary embolus Acute I26.99 - OTHER PULMONARY EMBOLISM WITHOUT ACUTE COR PULMONALE Qualifiers: Pulmonary embolism type: other Chronicity: unspecified Acute cor pulmonale presence: without acute cor pulmonale Qualified Code(s): I26.99 - Other pulmonary embolism without acute cor pulmonale Comment/Plan: Diagnosed in late February 2016 by [facility] on V/ Q scan. Given thrombocytopenia and repeated falls at home he is a very poor anticoagulation candidate. Discussed with who understands risk. (12) Neutrophilic leukocytosis Acute D72.9 - DISORDER OF WHITE BLOOD CELLS, UNSPECIFIED - Plan Due to the presence of and/or the risk of deterioration, my attendance to this patient required critical care time, including assessment/reassessment, documentation, ordering and interpreting ancillary studies, discussion with staff and consultants,patient and family, and excludes time spent on separately billable procedures. In summary, this patient is acutely and critically ill. The patient requires treatment of vital organ failure and measures to prevent further life-threatening deterioration of condition. Discussed his high risk of with the patient's and son this morning. They are very concerned,and are considering changing to Hospice and comfort care. Advised them that his risk of in 24-48 hours would be very high if all medications were discontinued at this time.
[2016-04-03] MEDS ORDERED: OXYCODONE HCL 5 MG TABLET PO PRN (11:44)
[2016-04-03] MEDS ORDERED: METRONIDAZOLE 500 MG TAB PO SCH (12:00)
[2016-04-03] MEDS: FUROSEMIDE 40 MG TAB PO SCH (16:16)
[2016-04-03] MEDS: Fluconazole 200 mg in NS 200 MG/100 ML ML IV SCH (16:16)
[2016-04-03] MEDS: Levofloxacin 750 mg/150 ml D5W 750 MG/150 ML RTU IV SCH ×2 (17:45→18:37)
[2016-04-03] MEDS: CEFTRIAXONE 1 GM in D5W 100 ML IV SCH (17:47)
[2016-04-03] MEDS: METRONIDAZOLE 500 MG TAB PO SCH (17:49)
[2016-04-03] MEDS: ENOXAPARIN 40 MG/0.4 ML PFS SQ SCH (17:49)
[2016-04-03] MEDS ORDERED: SENNA CONCENTRATE TAB PO SCH (21:00)
[2016-04-03] MEDS: CHLORHEXIDINE (HIBICLENS) 4 OZ BOTTLE TOP SCH (21:15)
[2016-04-03] MEDS: METOPROLOL TARTRATE 25 MG TAB PO SCH (22:31)
[2016-04-04] MEDS: HYDROCORTISONE 100 MG/2 ML VIAL IV SCH (02:53)
[2016-04-04] MEDS: Norepinephrine in D5W infusion 8,000 MCG/250 ML BAG IV SCH (02:59)
[2016-04-04] MEDS: NS 1,000 ML IV SCH ×2 (04:05→17:46)
[2016-04-04] MEDS: REGULAR INSULIN 100 UNITS/ML - 3 ML VIAL SQ SCH ×3 (06:26→17:45)
[2016-04-04] MEDS ORDERED: ENALAPRIL MALEATE 2.5 MG TAB PO SCH (09:00)
[2016-04-04] MEDS ORDERED: FOLIC ACID 1 MG TAB PO SCH (09:00)
[2016-04-04] MEDS ORDERED: PREDNISONE 5 MG TAB PO SCH (09:00)
--- NOTE | 2016-04-04 09:18 | GENMEDPROG ---
Chief Complaint: SEPSIS, PNEUMONIA, C. DIFF, ELZBIETA, ANEMIA, DEMENTIA Currently: Reports: NAIK, SOB, Diarrhea, Abdominal Pain - Physical Examination Vital Signs and I&O: Last Vital Signs Temp 98.1 F 04/04/16 07:00 Pulse 120 H 04/04/16 09:00 Resp 18 04/04/16 03:00 BP 94/49 L 04/04/16 09:00 Pulse Ox 100 04/04/16 08:00 Oxygen Pulse Oxygen Saturation 100 O2 Device Nasal Cannula Oxygen Flow Rate 2 Fraction of Inspired Oxygen ( FIO2) Intake & Output 04/01/16 04/02/16 04/03/16 04/04/16 23:59 23:59 23:59 23:59 Intake Total 2644 5315 3014 1240 Output Total 300 525 350 30 Balance 2344 0002 2664 1210 Patient's weight 72.121 kg 74.389 kg 101.65 kg General: Alert, Cooperative, Mild distress, Weakness, Fatigue HEENT: PERRLA, EOMI, Anicteric Sclera, Mucous membr. moist/pink, Pallor Neck: Full range of motion, Normal Trachea alignment, Normal inspection, No Masses palpable, No Thyromegaly palpable Lymphatics: Normal Respiratory: Accessory Muscle Use, Rales (RLL), Tachypnea Cardiovascular: Regular rate and rhythm, Normal S1, Normal S2, Irregular. negative: LE Edema GI: Soft, No masses, Tenderness (mild diffuse). negative: Normal bowel sounds ( INCREASED), Rebound Extremities/Musculoskeletal: Normal pulses, Edema (L ANKLE), DJD Skin: Warm,Dry and Intact Neurological: Normal speech, Strength at 5/5 X4 ext, Normal tone, Cranial nerves 3-12 NL Psych/Mental Status: Appropriate, Normal Affect, Cooperative - Assessment (1) Sepsis Acute A41.9 - SEPSIS, UNSPECIFIED ORGANISM Qualifiers: Sepsis type: sepsis due to unspecified organism Qualified Code(s): A41.9 - Sepsis, unspecified organism Comment/Plan: Patient presented with fever, tachypnea, tachycardia, and pneumonia and well as leukocytosis and lactic acidosis which are consistent with sepsis. His lactate level was above 4 consistent with severe sepsis. Continue severe sepsis protocol. All cultures negative so far, except C. diff is positive. Continue IV fluid resuscitation and broad-spectrum antibiotics. (2) Acute respiratory failure with hypoxia Acute J96.01 - ACUTE RESPIRATORY FAILURE WITH HYPOXIA Comment/Plan: Patient was hypoxic, but stable once placed on 2L of O2 per NC. Will continue pulmonary toilet and DuoNeb treatments. (3) Pneumonia Acute J18.9 - PNEUMONIA, UNSPECIFIED ORGANISM Qualifiers: Pneumonia type: due to unspecified organism Laterality: right Lung location: lower lobe of lung Qualified Code(s): J18.1 - Lobar pneumonia, unspecified organism Comment/Plan: continue antibiotics with IV Rocephin,& Levaquin Continue aggressive pulmonary toilet. Probably aspiration pneumonia. Patient failed swallowing evaluation- high risk for aspiration on MBSS. (4) Clostridium difficile colitis Acute A04.7 - ENTEROCOLITIS DUE TO CLOSTRIDIUM DIFFICILE Comment/Plan: Stool test + for C. diff. Patient initially nauseated and unable to swallow due to altered sensorium. Started medication IV, but give a trial of PO metronidazole. Unfortunately he is unable to swallow effectively. Resumed IV metronidazole. (5) Anemia Chronic D64.9 - ANEMIA, UNSPECIFIED Qualifiers: Anemia type: other cause Other causes of anemia: chronic disease, other Qualified Code(s): D63.8 - Anemia in other chronic diseases classified elsewhere Comment/Plan: Hg=10.8 Monitor counts -overall stable. Probably related to Rheumatoid arthritis. (6) Leukocytosis Acute D72.829 - ELEVATED WHITE BLOOD CELL COUNT, UNSPECIFIED Qualifiers: Leukocytosis type: bandemia Qualified Code(s): D72.825 - Bandemia Comment/Plan: This may be related to sepsis and infection; will hold Arava as precaution. Give stress-dose steroids. Wean after 6 doses. (7) Acute kidney injury Acute N17.9 - ACUTE KIDNEY FAILURE, UNSPECIFIED Comment/Plan: Hydrate aggressively and follow renal function (8) Rheumatoid arthritis Chronic M06.9 - RHEUMATOID ARTHRITIS, UNSPECIFIED Qualifiers: Rheumatoid arthritis location: multiple sites Rheumatoid factor presence: with rheumatoid factor Qualified Code(s): M05.79 - Rheumatoid arthritis with rheumatoid factor of multiple sites without organ or systems involvement Comment/Plan: Given hypotension patient will receive stress dose steroids. (9) Hypokalemia Acute E87.6 - HYPOKALEMIA Comment/Plan: Replaced losses and monitor (10) Fracture, intertrochanteric, right femur Acute S72.141A - DISPLACED INTERTROCHANTERIC FRACTURE OF RIGHT FEMUR, INIT Qualifiers: Encounter type: subsequent encounter Fracture type: closed Fracture healing: with nonunion Qualified Code(s): S72.141K - Displaced intertrochanteric fracture of right femur, subsequent encounter for closed fracture with nonunion Comment/Plan: Status post surgical repair. Continue postop care. Remove stefano from incision. Hold PT/OT for now. Family has decided to consult Hospice instead of returning to rehabilitation. (11) Pulmonary embolus Acute I26.99 - OTHER PULMONARY EMBOLISM WITHOUT ACUTE COR PULMONALE Qualifiers: Pulmonary embolism type: other Chronicity: unspecified Acute cor pulmonale presence: without acute cor pulmonale Qualified Code(s): I26.99 - Other pulmonary embolism without acute cor pulmonale Comment/Plan: Diagnosed in late February 2016 by [facility] on V/ Q scan. Given thrombocytopenia and repeated falls at home he is a very poor anticoagulation candidate. Discussed with who understands risk. (12) Neutrophilic leukocytosis Acute D72.9 - DISORDER OF WHITE BLOOD CELLS, UNSPECIFIED Case Care Discussed with: Consultants, Family, Nursing Staff, Resource Management Education/Counseling Given To: Patient, Family Member Education/Counseling Given Regarding: Diagnosis, Treatment, Prognosis Total Time: 45 min Critical Care: No Couseling Time (>50% in counseling/coordination): Yes Code: 93700 (>30min.)
[2016-04-04] MEDS: METRONIDAZOLE 500 MG TAB PO SCH ×3 (09:47→17:46)
[2016-04-04] MEDS: FUROSEMIDE 40 MG TAB PO SCH ×2 (09:48→17:45)
[2016-04-04] MEDS: METOPROLOL TARTRATE 25 MG TAB PO SCH (09:49)
[2016-04-04] MEDS ORDERED: Norepinephrine in D5W infusion 8,000 MCG/250 ML BAG IV SCH (11:00)
[2016-04-04 11:31] VITALS: TEMP 98.2
[2016-04-04] MEDS ORDERED: VARIBAR THIN 40% BARIUM 250 ML ONE (13:43)
[2016-04-04] MEDS ORDERED: HYDROCORTISONE 100 MG/2 ML VIAL IV SCH (15:00)
[2016-04-04 16:39] VITALS: BMI 23.9
--- NOTE | 2016-04-04 16:59 | PCM.DCS92 ---
- Final/Secondary Discharge Diagnosis (1) Sepsis Acute A41.9 - SEPSIS, UNSPECIFIED ORGANISM Present on Admission: Yes sepsis due to unspecified organism A41.9 - Sepsis, unspecified organism Comment: Patient presented with fever, tachypnea, tachycardia, and pneumonia and well as leukocytosis and lactic acidosis which are consistent with sepsis. His lactate level was above 4 consistent with severe sepsis. Continue severe sepsis protocol. All cultures negative so far, except C. diff is positive. Continue IV fluid resuscitation and broad-spectrum antibiotics. (2) Acute respiratory failure with hypoxia Acute J96.01 - ACUTE RESPIRATORY FAILURE WITH HYPOXIA Present on Admission: Yes Comment: Patient was hypoxic, but stable once placed on 2L of O2 per NC. Will continue pulmonary toilet and DuoNeb treatments. (3) Pneumonia Acute J18.9 - PNEUMONIA, UNSPECIFIED ORGANISM Present on Admission: Yes due to unspecified organism right lower lobe of lung J18.1 - Lobar pneumonia, unspecified organism Comment: continue antibiotics with IV Rocephin,& Levaquin Continue aggressive pulmonary toilet. Probably aspiration pneumonia. Patient failed swallowing evaluation- high risk for aspiration on MBSS. (4) Clostridium difficile colitis Acute A04.7 - ENTEROCOLITIS DUE TO CLOSTRIDIUM DIFFICILE Present on Admission: Yes Comment: Stool test + for C. diff. Patient initially nauseated and unable to swallow due to altered sensorium. Started medication IV, but give a trial of PO metronidazole. Unfortunately he is unable to swallow effectively. Resumed IV metronidazole. (5) Anemia Chronic D64.9 - ANEMIA, UNSPECIFIED Present on Admission: Yes other cause chronic disease, other D63.8 - Anemia in other chronic diseases classified elsewhere Comment: Hg=10.8 Monitor counts -overall stable. Probably related to Rheumatoid arthritis. (6) Leukocytosis Acute D72.829 - ELEVATED WHITE BLOOD CELL COUNT, UNSPECIFIED bandemia D72.825 - Bandemia Comment: This may be related to sepsis and infection; will hold Arava as precaution. Give stress-dose steroids. Wean after 6 doses. (7) Acute kidney injury Acute N17.9 - ACUTE KIDNEY FAILURE, UNSPECIFIED Present on Admission: Yes Comment: Hydrate aggressively and follow renal function (8) Rheumatoid arthritis Chronic M06.9 - RHEUMATOID ARTHRITIS, UNSPECIFIED Present on Admission: Yes multiple sites with rheumatoid factor M05.79 - Rheumatoid arthritis with rheumatoid factor of multiple sites without organ or systems involvement Comment: Given hypotension patient will receive stress dose steroids. (9) Hypokalemia Acute E87.6 - HYPOKALEMIA Present on Admission: Yes Comment: Replaced losses and monitor (10) Fracture, intertrochanteric, right femur Acute S72.141A - DISPLACED INTERTROCHANTERIC FRACTURE OF RIGHT FEMUR, INIT Present on Admission: Yes subsequent encounter closed with nonunion S72.141K - Displaced intertrochanteric fracture of right femur, subsequent encounter for closed fracture with nonunion Comment: Status post surgical repair. Continue postop care. Remove stefano from incision. Hold PT/OT for now. Family has decided to consult Hospice instead of returning to rehabilitation. (11) Pulmonary embolus Acute I26.99 - OTHER PULMONARY EMBOLISM WITHOUT ACUTE COR PULMONALE Present on Admission: Yes other unspecified without acute cor pulmonale I26.99 - Other pulmonary embolism without acute cor pulmonale Comment: Diagnosed in late February 2016 by [facility] on V/Q scan. Given thrombocytopenia and repeated falls at home he is a very poor anticoagulation candidate. Discussed with who understands risk. (12) Neutrophilic leukocytosis Acute D72.9 - DISORDER OF WHITE BLOOD CELLS, UNSPECIFIED Present on Admission: Yes Discharge Disposition: Disc to Hospice Care Discharge Condition: Serious Cognitive Discharge Status: Cognitive deficits prevent decision making for safety., Cognitive Deficits Impact judgement, impair ability to safely navigate Fuctional Discharge Status: Bed Bound, Total Assistance Required, Fall Risk, Deconditioning, Ambulatory Dysfunction, Dyspnea with ambulation Physician Follow up/Referrals: Navjot Pope MD [Staff Physician] - Listed Time O2 Device: Nasal Cannula Oxygen Flow Rate: 2 Oxygen to be used after Discharge: Continuous Additional Instructions: Patient is still septic and has active Clostridium difficile infection. Consider infection control precautions for staff. Diet at Discharge: As Tolerated Activity: Bedrest - DC Summary Notes Hospital Course Note:: Discharge summary on patient named SAMANTHA TORRES admitted to [facility] on 04/01/16 by Jamilah Umaña MD. Date of discharge is []. Samantha Torres is an 80 year old gentleman who underwent recent hip surgery and was getting rehabilitation at [facility]. He had a syncopal episode today, and subsequently was noted to be tachypneic and tachycardic. He is slightly confused, but his caretakers stated that he has some baseline dementia. In the ED he was noted to have chest congestion, an abnormal CXR with probable early pneumonia, fever, tachypnea, tachycardia, and leukocytosis with a bandemia, all consistent with sepsis. His lactic acid level is 4.9. He is critically ill and will be admitted to the ICU for further care and evaluation. We will initiate rapid hydration and after obtaining appropriate cultures, begin IV antibiotics. The patient was found to be septic with an acute aspiration pneumonia, and was started on antibiotics with IV Rocephin,& Levaquin. Continue aggressive pulmonary toilet. Patient failed swallowing evaluation- high risk for aspiration on MBSS. He was also diagnosed with a pulmonary embolus in late February 2016 by [facility] on V/Q scan. Given thrombocytopenia and repeated falls at home he is a very poor anticoagulation candidate. Discussed with who understands risk. Stool test + for C. diff. Patient initially nauseated and unable to swallow due to altered sensorium. Started medication IV, but give a trial of PO metronidazole. Unfortunately he is unable to swallow effectively. Resumed IV metronidazole. All of these problems were reviewed with the patient's and son. Initially they wanted him to have a therapeutic trial of antibiotics, but later they changed their mind and decided to do comfort care only. they have requested a Hospice consult. He will be discharged to [facility] as soon as a bed is available. Total Time: 45 min Code: 95673 (>30min.) - Physical Exam Vital Signs: Last Vital Signs Temp 98.2 F 04/04/16 15:00 Pulse 109 04/04/16 15:00 Resp 19 04/04/16 13:49 BP 101/47 L 04/04/16 15:00 Pulse Ox 95 04/04/16 15:00 Oxygen Pulse Oxygen Saturation 95 O2 Device Nasal Cannula Oxygen Flow Rate 2 Fraction of Inspired Oxygen ( FIO2) Constitutional: Alert, Confused, Distress Oriented to: Person, Unable to Test - HEENT Head: Normal Eye: Normal (PERRL: EOMI), Pale Conjunctiva Oropharynx: Normal. negative: Exudate, Red, Tonsillar Hypertrophy Tympanic Membrane: Dull ENT EAC: Normal Nose: No Symptoms Reported. negative: Bleeding, Congestion, Discharge - Respiratory/Cardiovascular Respiratory: Accessory Muscle Use, Rales (RLL) Cardiovascular: Tachycardia, Irregular - GI Auscultation: Normal Palpation: Normal (soft, nondistended). negative: Fluid Wave, Mass Tenderness: Non tender Ryan's Sign: Negative Rectal Exam: Deferred - Musculoskeletal Back: Normal, No Palpable Step-off Extremities: Pedal Pulse (normal), Radial Pulse (normal). negative: Clubbing, Cyanosis, Edema - Integumentary Skin: Warm, Dry Lymphatics: Normal - Neurologic Memory Impaired: Short-term, Long-term Motor Function: Unable to Test Cranial Nerve: 9 (DIFFICULTY SWALLOWING), 10 (DIFFICULTY SWALLOWING) Cerebellar: Tremor, Unable to Test Mood Description: Depressed, Flat Thought: Rambling Conversation. negative: Coherent Perception: Other (PATIENT RESPONDS WHEN SPOKEN TO, variable appropriateness)
[2016-04-04] MEDS: Fluconazole 200 mg in NS 200 MG/100 ML ML IV SCH (17:45)
[2016-04-04] MEDS: ENOXAPARIN 40 MG/0.4 ML PFS SQ SCH (18:15)
[2016-04-04] MEDS: CEFTRIAXONE 1 GM in D5W 100 ML IV SCH (18:16)
[2016-04-04 19:43] VITALS: BP 93/44; PULSE 118
== END 2016-04-04 20:30 | disposition hospice, inpatient (51) | DRG 871 ==
LOC: ED 11:10 → ICU 13:56
PROVIDERS: ADMIT Family Medicine; ATTEND Family Medicine
PROC: 039B3ZZ Drainage of Right Radial Artery, Percutaneous Approach (ICD-10-PCS; principal; 2016-04-01)
DX: A41.9 Sepsis, unspecified organism (principal); J96.01 Acute respiratory failure with hypoxia; I26.99 Other pulmonary embolism without acute cor pulmonale; J69.0 Pneumonitis due to inhalation of food and vomit; A04.7 Enterocolitis due to Clostridium difficile; N17.9 Acute kidney failure, unspecified; S72.141K Displaced intertrochanteric fracture of right femur, subsequent encounter for closed fracture with nonunion; D63.8 Anemia in other chronic diseases classified elsewhere; M05.79 Rheumatoid arthritis with rheumatoid factor of multiple sites without organ or systems involvement; E87.6 Hypokalemia; Z51.5 Encounter for palliative care; R29.6 Repeated falls; Z87.01 Personal history of pneumonia (recurrent); M19.90 Unspecified osteoarthritis, unspecified site; M10.9 Gout, unspecified; Z88.5 Allergy status to narcotic agent; Z88.0 Allergy status to penicillin; Z79.899 Other long term (current) drug therapy; Z79.82 Long term (current) use of aspirin; Z87.891 Personal history of nicotine dependence; Z66 Do not resuscitate; X58.XXXD Exposure to other specified factors, subsequent encounter; R65.20 Severe sepsis without septic shock
CPT/HCPCS: 36415; 36600; 71010; 80048; 80053; 81001; 82803; 82962; 83605; 84484; 85007; 85027; 85610; 85730; 87040; 87086; 87493; 87641; 93005; 94762; 96361; 96365; 96372; 96375; 99284; J0692; J0696; J1450; J1650; J1720; J1956; J2543; J3370; J3480; J3490; J7060; J7070